=== PATIENT | female | born 1945 | race Caucasian/White ===

== ENCOUNTER → 2019-12-18 07:45 | Outpatient (CLI) | payer OTHER, SELFPAY ==
[2019-12-18 08:00] LABS: Bacteria Urine None Seen; RBC Urine None Seen (0-5/HPF); WBC Urine None Seen (0-5/HPF)
[2019-12-18 08:27] LABS: Add Manual Diff / Slide Review NO; Basophils Absolute Auto 100 /uL (0-100); Eosinophils Absolute Auto 200 /uL (0-450); Eosinophils Percent Auto 3.9 % (2-4); Hematocrit 38.4 % (36-46); Lymphocytes Absolute Auto 1100 /uL (1100-4500); Lymphocytes Percent Auto 20.6 % (25-40); Mean Corpuscular HGB Conc 33.8 % (30-36); Mean Corpuscular Hemoglobin 30.6 PG (26-34); Mean Corpuscular Volume 90.6 fL (80-100); Monocytes Absolute Auto 600 /uL (0-900); Monocytes Percent Auto 11.4 % (3-14); Neutrophils Absolute Auto 3300 /uL (1500-7000); Neutrophils Percent Auto 63.1 % (50-75); Platelet Count 323 X10^3/uL (150-400); Red Blood Cell Count 4.24 X10^6/uL (4.0-5.2); Red Cell Distribution Width 13.7 % (11.6-14.8); White Blood Cell Count 5.3 X10^3/uL (4.5-11.0)
[2019-12-18 08:39] LABS: BUN Creatinine Ratio 21.4 (6-22); Blood Urea Nitrogen 15 mg/dL (7-17); Calcium 9.7 mg/dL (8.4-10.2); Carbon Dioxide 27 mmol/L (22-32); Chloride 100 mmol/L (98-107); Estimated Glomerular Filt Rate > 60.0 mL/min (>60); Glucose 87 mg/dL (80-110); HEMOLYSIS < 15 (0-50); Potassium 4.1 mmol/L (3.4-5.1); Sodium 135 mmol/L (137-145)
[2019-12-18 09:47] LABS: Appearance Urine UA CLEAR; Bilirubin Urine UA NEGATIVE (NEGATIVE); Color Urine UA YELLOW; Glucose Urine UA NEGATIVE (Negative); Ketones Urine UA NEGATIVE (NEGATIVE); Leukocyte Esterase Urine UA NEGATIVE (NEGATIVE); Nitrite Urine UA NEGATIVE (Negative); Occult Blood Urine UA TRACE-LYSED (Negative); Protein Urine UA NEGATIVE (Negative); Specific Gravity Urine UA 1.015 (1.000-1.035); Urobilinogen Urine UA 0.2 E.U./dL (0.2)
[2019-12-18 09:52] LABS: pH Urine UA 5.5 (4.5-8.0)
[2019-12-18 10:05] LABS: Culture Indicated Urine Cult Not Indicated; Urine Comments Microscopic Normal
[2019-12-18 10:16] LABS: Transferrin 238 mg/dL (206-381)
== END ==
PROVIDERS: Visit Provider Orthopaedic Surgery
DX: Z01.818 Encounter for other preprocedural examination (principal); Z01.812 Encounter for preprocedural laboratory examination; R73.9 Hyperglycemia, unspecified; N39.0 Urinary tract infection, site not specified; D64.9 Anemia, unspecified; R79.9 Abnormal finding of blood chemistry, unspecified
CPT/HCPCS: 36415; 80048; 81001; 83036; 84466; 85025; 93005

== ENCOUNTER 2020-01-18 08:05 | Day surgery (SDC) | payer OTHER, SELFPAY ==
[2020-01-11 12:50] VITALS: BMI 21.9
[2020-01-18] VITALS (15 sets, daily range): BP systolic 110–168; BP diastolic 49–94; PULSE 54–93; RESP 13–19; TEMP 36.1–36.5; O2SAT 94–100; BMI 21.9
--- NOTE | 2020-01-18 06:50 | DI.RAD.S_ITS ---
PROCEDURE: XR KNEE LT 1TO2V INDICATIONS: post op TECHNIQUE: 2 view(s) of the knee acquired. COMPARISON: None. FINDINGS: Bones: Patient is status post knee joint arthroplasty. Hardware components are in expected positions. Visualized bony structures are intact. Soft tissues: Overlying postoperative changes are noted. IMPRESSION: Post left total knee arthroplasty changes with anatomic left knee alignment. Dictated by: Caleb Slater M.D. on 01/18/2020 at 14:22 Approved by: Caleb Slater M.D. on 01/18/2020 at 14:22
[2020-01-18] MEDS: LACTATED RINGERS 1,000 ML 42 ML IV ×2 (09:14→12:08)
[2020-01-18] MEDS: ACETAMINOPHEN 325 MG TABLET 975 MG PO (09:18)
[2020-01-18] MEDS: MELOXICAM 7.5 MG TABLET 15 MG PO (09:19)
[2020-01-18] MEDS: PREGABALIN 75 MG CAPSULE PO (09:19)
--- NOTE | 2020-01-18 09:40 | PM.PREOP ---
Pre-operative Note Interval Note History & Physical reviewed/Exam performed by Physician: Yes Changes to H&P: No
--- NOTE | 2020-01-18 09:49 | PM.OP.1 ---
Operative Date/Time/Diagnoses Date of procedure: 01/18/20 Time of procedure: 11:55 Pre-op diagnosis: Left knee osteoarthritis Post-op diagnosis: same Procedure & Clinicians Procedure: Left total knee replacement Same procedure as scheduled: Yes Indications: The patient has had progressively worsening left knee pain with radiographic changes consistent with arthritis. Non-operative management has failed and the patient has requested total knee replacement. The risks, benefits and alternatives to surgery were discussed with the patient prior to proceeding. Risks discussed included, but were not limited to, failure to relieve pain, stiffness, infection, nerve damage, deep venous thrombosis, pulmonary embolism, stroke, coma, heart attack, permanent paralysis and , as well as the potential need for eventual revision of the prosthetic. Surgeon: Ishaan Aldridge Jukebox Coin Collector: Lisbeth Andino Click Yes if Unassisted: No Anesthesia Type: Local Operative Notes Findings: Severe tricompartmental osteoarthritis with significant valgus deformity. Closure Type: primary Specimen(s): none sent Prosthetic devices, grafts, tissues, transplants, or devices: Implants used in this procedure were manufactured by the [employer] and [employer] and included the BCS II Journey total knee replacement with a size 4 left cobalt chromium femoral component, a size 3 left non porous tibial base plate with a 9 mm cross-linked polyethylene insert and a 35 mm oval Fransisca II patellar component. Applied: implant(s) Estimated Blood Loss (mL): 25 Blood products transfused: none Tourniquet time (min): 47 Procedure in detail: The patient was seen in the pre-operative area, where the left knee was identified as the operative site and this was marked with my initials. The patient received pre-operative antibiotics, and was taken to the operating room and placed on the operative table in the supine position. After satisfactory anesthesia, a fuller brush man out was performed. The left leg was encircled with a tourniquet about the proximal thigh, and the leg was prepared from the toes to the tourniquet with ChloroPrep in the usual fashion and draped through sterile drapes. The leg was elevated and exsanguinated with Eschmark bandage and the tourniquet inflated to 250 mmHg pressure. The knee was approached through an approximately 18 cm incision centered over the patella and carried into the knee through a medial parapatellar arthrotomy. The anterior osteophytes and soft tissues were removed. The rotational landmarks of [place]'s line and the transepicondylar axis were marked on the femur with electrocautery, and intramedullary guide holes for the femur and tibia were created. The distal femoral cut was made in 6 degrees of valgus using the intramedullary guide at the primary cut setting. The proximal tibial cut was then made using the intramedullary guide, taking 7 mm of bone off the less involved medial side. The extension gap was checked and the rotation of the femoral component confirmed with the gap balancing blocks. The anterior, posterior and chamfer cuts were then made. The posterior osteophytes and soft tissues were then removed. The posterior capsule was injected with part of a mixture of 50 ml 0.25% Marcaine mixed with 20 ml Exparel and 4 mg of morphine for post-operative pain control. The remainder of this mixture was injected into the capsule and subcutaneous tissues during cement curing. The tibia was prepared with the rotation set by an extra medullary guide. Trial tibial and femoral components were then placed and the intercondylar notch cut through the femoral trial. Range of motion was 0-135 degrees, with good stability throughout the range. The patella was then cut to accommodate the patellar prosthetic. There was no need for a lateral release. The trials were then removed, and the femoral hole plugged with a bone plug. The bone was prepared with pulsatile lavage, and dried with a sponge. Cement was applied and the final prosthetics placed. Excess cement was removed during and after cement curing. After confirming there was no extruded cement posteriorly, the final tibial insert was placed. The knee was copiously irrigated and the tourniquet deflated. Hemostasis was obtained. The capsule was closed with interrupted # 2 polyester sutures. The subcutaneous layer was closed with 3-0 Vicryl, and the skin with a running 3-0 V-Lock suture and SteriStrips. An Aquacel Ag dressing was applied and the patient was taken to recovery having tolerated the procedure well. Complications: none Post-operative Condition: stable Disposition: PACU Plan for aftercare: The patient will be maintained on a standard total knee replacement protocol with weight bearing as tolerated. The patient will receive aspirin and sequential compression devices for DVT prophylaxis. The patient will be discharged home when safe for the home environment.
[2020-01-18] MEDS: CEFAZOLIN 2 GM/100 ML FROZ.PIGGY IV (10:25)
--- NOTE | 2020-01-18 10:57 | SUR.OPER ---
Supine on padded OR bed. Pillow under head, arms secured on padded armboards <90 degree abduction. Safety belt across torso. Non-operative leg secured with tape over blanket over lower leg. Operative leg secured in DeMayo/Daryl positioner. Foam padded brace at thigh of operative leg.
[2020-01-18] MEDS: BUPIVACAINE 0.25% W/ EPI 30 ML VIAL 60 ML INJ (11:04)
[2020-01-18] MEDS: TRANEXAMIC ACID 1,000 MG VIAL 1000 MG INJ ×2 (11:04→11:27)
[2020-01-18] MEDS: MORPHINE 4 MG/ML INJ INJ (11:05)
[2020-01-18] MEDS: BUPIVACAINE LIPOSOME 266 MG/20 ML VIAL INJ (11:05)
[2020-01-18] MEDS: OXYCODONE/ACETAMINOPHEN 5/325 TABLET 1 TAB PO (12:43)
--- NOTE | 2020-01-18 13:15 | SUR.PHASEI ---
Patient transferred to the floor. Report given to Casper. VS stable. IV saline locked. Dressing CDI. Belongings bag with patient.
[2020-01-18] MEDS: LACTATED RINGERS 1,000 ML 125 ML IV ×2 (14:42→21:07)
[2020-01-18] MEDS: IBUPROFEN 400 MG TABLET PO ×3 (14:42→21:10)
--- NOTE | 2020-01-18 15:19 | PT.IIE ---
Current Diagnoses Unilateral primary osteoarthritis, left knee (01/18/20) Surgery Performed Operation Date: 01/18/20 10:15 Actual Procedures p Total Knee Arthroplasty(Left) - Ishaan Aldridge MD Surgical History (Last Updated 01/11/20 @ 13:12 by Nevaeh Bundy, RN) History of arthroscopy of both knees (Acute) History of facelift (Acute ~2012) Hx of abdominoplasty (Acute ~1985) Hx of appendectomy (Acute) Hx of bilateral cataract extraction (Acute) Hx of tonsillectomy (Acute) Medical History (Last Updated 01/11/20 @ 13:12 by Nevaeh Bundy RN) BCC (basal cell carcinoma), face (Acute) HLD (hyperlipidemia) (Acute) Hypothyroidism (Acute) Osteoarthritis (Acute) Physical Therapy Inpatient Evaluation/Re-Eval M1 PT/OT-IP Prior Functional Status Start: 01/18/20 13:13 Freq: NEEDED Status: Active Protocol: Document 01/18/20 15:03 AW (Rec: 01/18/20 15:19 AW [email or web address]) Medical Review Prior Functional Status Medical History Reviewed Yes Communication WNL Mobility and Gait Pt is active, walks daily without assistive device, and regularly uses the elliptical machine at the gym. Activities of Daily Living and IADL's Independent Prior Functional Level (Other details) Pt denies any falls in the past two years. Social History Household Members significant other Living Arrangements House Number of Floors (Floors) 3 or More Floors Number of Stairs To Enter/Railing? 2 HARI with R rail ascending. 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 Home Environment High Toilet,Walk in Shower, Built-In Shower Seat Home Equipment Front Wheel Walker,Straight Cane,Raised Toilet Seat Without Armrests Employment Status Retired Additional Social History Comment Pt lives with her domestic partner of 40 years, Tash, who is retired and has no limitation in her ability to assist. M2 PT-IP Current Condition Start: 01/18/20 13:13 Freq: NEEDED Status: Active Protocol: Document 01/18/20 15:03 AW (Rec: 01/18/20 15:19 AW [email or web address]) Physical Therapy Current Condition Current Condition Evaluation Date 01/18/20 Treatment Diagnosis L TKA, impaired mobility Onset Date 01/18/20 Weight Bearing Status Weight Bearing Status Weight Bear as Tolerated M3 PT-IP Subjective Start: 01/18/20 13:13 Freq: NEEDED Status: Active Protocol: Document 01/18/20 15:03 AW (Rec: 01/18/20 15:19 AW [email or web address]) Subjective Physical Therapy Visit Type Type Initial Evaluation Visit Start Time 13:58 Visit Stop Time 14:27 Total Visit Minutes 29 Notes Pt's partner, Tash, present throughout evaluation Number of HISTORIAN RESEARCH ASSISTANT Visits 0 Physical Therapy Visit Comments Patient Comments Pt willing to mobilize with PT Patient Goals Pt plans to return home with her partner's support at discharge. Therapy Pain Assessment Pain When Pain Assessed During Mobility Pain Present Pain Present Denied Pain M4 PT-IP Mobility and Gait Start: 01/18/20 13:13 Freq: NEEDED Status: Active Protocol: Document 01/18/20 15:03 AW (Rec: 01/18/20 15:19 AW [email or web address]) PT-Bed Mobility Assessment Supine to Sit Supine to Sit Minimal Assistance,1 Person Assistance,Head of Bed Elevated,Bedrails Scooting Scooting to Edge of Bed Contact Guard Assistance PT-Transfer Assessment Sit to and From Stand Sit to and from Stand Minimal Assistance,1 Person Assistance Equipment Transfer Assistive Device Gait Belt,Front Wheeled Walker Orthotic/Prosthetic Devices or Brace: No Transfers Transfer Destination Chair Transfer Technique Stand Step Pivot Transfer Ability Level of Assist Contact Guard Assistance Comments Mobility Comments Pt was sitting up in bed upon PT arrival. She was willing to work with PT but did report incomplete sensation in bilateral feet. BP in supine was 146/77 HR 61. She completed supine to sit with min A x 1 to support her operative leg. Pt stood using FWW min A x 1 and was incontinent of urine upon standing. She was able to walk with FWW CGA 2 feet to the chair and transferred CGA. Pt stood again to don briefs and was able to bear weight bilaterally while pulling up briefs with therapist CGA to assist with balance. Pt sat again and was positioned in the chair with fresh ice packs applied, call light and table within reach, and her partner in room providing encouragement. Gait Assessment Gait Gait Assistance Required: Contact Guard Assist Distance (Feet) 2 Able to Maintain Weight Bearing Status Yes During Gait Assistive Devices Assistive Device Gait Belt,Front Wheeled Walker Orthotic/Prosthetic Devices or Brace: No Gait Deviations General Gait Pattern Antalgic,Decreased Stride Length,Decreased Feet Clearance,Flexed Trunk,Step-to Gait Factors Limiting Gait Function Factors Limiting Gait Function Decreased Sensation,Decreased Strength,Limited Range of Motion,Poor Balance Comments Gait Comments See mobility comments Stair Climbing Assessment Comments Stair Climbing Comments Not assessed. PT-Balance Assessment Sitting Balance and Reactions Static Sitting Balance Ability Normal Dynamic Sitting Balance Ability Good Standing Balance and Reactions Static Standing Balance Ability Good Dynamic Standing Balance Ability Good Device Used FWW M5 PT-IP Objective Assessments Start: 01/18/20 13:13 Freq: NEEDED Status: Active Protocol: Document 01/18/20 15:03 AW (Rec: 01/18/20 15:19 AW [email or web address]) Orientation Orientation/Cognition Level of Alertness Alert Orientation Name,Day of Week,Place, Situation Language Function Ability No Deficits Noted Safety Awareness Understands Safety Issues Memory Description No Deficits Noted Gross Range of Motion Upper Extremity ROM Assessment Within Functional Limits Lower Extremity ROM Assessment Left Impaired Strength Upper Extremity Strength Assessment Within Functional Limits Lower Extremity Strength Assessment Left Impaired Comments Strength Comments RLE grossly 4+/5 Coordination Assessment Gross Coordination Gross Coordination WNL Sensation Assessment Sensation Gross Sensation Right LE Impaired,Left LE Impaired Light Touch Impaired M6 PT-IP Treatment Start: 01/18/20 13:13 Freq: NEEDED Status: Active Protocol: Document 01/18/20 15:03 AW (Rec: 01/18/20 15:19 AW [email or web address]) Physical Therapy Treatment Exercises Exercises Ankle Pumps,Quad Sets,Heel Slides,Supine Hip Abduction Education Education Provided Precautions,Weight Bearing Status,Post-Op Packet,Safety Other Treatments Other Treatment Performed Provided education on role of PT, plan of care, weightbearing status, and safe use of FWW. M7 PT-IP Assessment and Plan Start: 01/18/20 13:13 Freq: NEEDED Status: Active Protocol: Document 01/18/20 15:03 AW (Rec: 01/18/20 15:19 AW [email or web address]) PT Summary Assessment and Plan Potential Rehabilitation Potential Excellent Status of Condition at Evaluation Evolving Summary Impairments ROM,Strength,Sensation,Bed Mobility,Transfers,Gait Assessment Summary Monie is a 74 yo woman seen for PT evaluation on POD0 folllowing L TKA. At baseline, she was active and independent without use of assistive device. She lives with her partner, Tash, who is available and able to provide assist as needed. On evaluation, pt required min assist for bed mobility and sit to stand, CGA for transfers. PT anticipates she will meet the goals of this plan of care and be safe to discharge home with her partner's assist and outpatient PT once medically cleared. Goals Bed Mobility Goal Standby Assistance Transfer Goal Standby Assistance,Front Wheeled Walker Gait Goal Standby Assistance,Front Wheel Walker Gait Distance 200 Other Goals - up/down 2 stairs with R rail ascending SBA Days to Meet Goals 2 Frequency of Treatment Frequency Of Treatment Twice a Day Treatment Plan Physical Therapy Treatment Plan Bed Mobility Training,Transfer Training,Gait Training, Therapeutic Exercise,Balance Retraining,Post Op Education, Discharge Planning,Hot or Cold Pack,Neuromuscular Re-ed, Coordination Retraining,Manual Therapy Other Recommendations and Next Treatment assess gait, assess safety on Focus stairs Recommendations To Nursing Amount of Assist Needed 1 Person Assist Discharge Recommendations PT Discharge Recommendations Home with Assistance, Outpatient PT Transportation Needs at Discharge Private Vehicle
--- NOTE | 2020-01-18 15:25 | PC.NURSE ---
VSS. Oriented to room and call light. Pain well controlled at this time. Christopher and aquacel intact. Per P.T. patient had urinary incontinence when she got up to chair. Evening shift RN aware and will continue to monitor for urinary function post surgery. IV fluids as ordered. Call light within reach.
--- NOTE | 2020-01-18 17:57 | PC.NURSE ---
Addendum entered by Elizabeth De La Torre R.N. 01/18/20 21:16: Pt sitting in chair all evening. Denies discomfort. IVF infusing as per orders. Stable post op course. Call light w/in reach, pt calls appropriately for needs. Continue w/plan of care. Original Note: Pt sitting in chair, denies discomfort at this time. Christopher/aquacell dsg to left knee CDI. IVF LR @ 125cc/hr infusing into left hand via pump w/o incidence. Stable post op course. Call light w/in reach, chair alarm on for pt safety.
[2020-01-18] MEDS: ASPIRIN EC 81 MG TABLET PO (19:43)
[2020-01-18] MEDS: DOCUSATE 100 MG CAPSULE PO (19:43)
[2020-01-18] MEDS: ACETAMINOPHEN 325 MG TABLET 650 MG PO (19:43)
[2020-01-19] MEDS: IBUPROFEN 400 MG TABLET PO ×3 (01:19→09:05)
[2020-01-19] MEDS: LEVOTHYROXINE 25 MCG TABLET PO (05:10)
[2020-01-19 05:22] VITALS: BP 140/74; PULSE 61; RESP 16; TEMP 36.4; O2SAT 99
[2020-01-19 07:02] LABS: Hematocrit 31.4 % (36-46); Hemoglobin 10.7 g/dL (12.0-16.0)
--- NOTE | 2020-01-19 07:31 | PM.DS.1 ---
History of Present Illness History of Present Illness Date Patient Seen: 01/19/20 Time Patient Seen: 07:31 Chief complaint: Left Total Knee Arthroplasty *OPB* Narrative: The history and physical are contained in the chart in a previously completed note. Please refer to that note for this information. Discharge Providers Provider Discharge Date: 01/19/20 Consults: 01/18/20 13:08 Consult to Discharge Planning Routine Comment: Consult to Physical Therapy Evaluate & Treat Comment: Physician Instructions: postop TKA protocol Discharge provider: Ishaan Aldridge MD Summary Hospital Course Discharge Diagnosis: 1. Left knee osteoarthritis 2. Mild post hemorrhagic anemia Hospital Course: The patient was admitted to the hospital and taken directly to the operating room on January 18, 2020. She underwent a left total knee replacement without complications. On postoperative day 1 she was comfortable and appeared ready for discharge. Status at Discharge Cognitive/behavioral status at discharge: oriented Functional status at discharge: uses cane/walker Overall status at discharge: patient is progressing back to baseline Time Spent with Patient Time spent: Less than 30 minutes Exam Vital Signs (past 8 hours): - 01/19/20 05:22 Temperature 97.6 F Pulse Rate 61 Respiratory Rate 16 Blood Pressure 140/74 Pulse Oximetry 99 Oxygen Delivery Method Room Air Oxygen Flow Rate 0 Narrative Exam Narrative: Left knee wound is dressed with no drainage on the bandage. Calf is soft. Light touch and motion are intact in the left lower extremity. Objective Labs Result Diagrams: 01/19/20 06:35 Labs: Laboratory Results - last 24 hr 01/19/20 06:35 Hgb 10.7 L Hct 31.4 L Discharge Plan Discharge Plan Patient Disposition: Home Discharge Med Rec/Prescriptions Prescriptions: New acetaminophen 325 mg Tablet 650 mg PO TID 30 Days Qty: 180 RF: 0 aspirin 81 mg Tablet,Delayed Release (Dr/Ec) 81 mg PO BID 42 Days Qty: 84 RF: 0 ibuprofen 400 mg Tablet 400 mg PO Q4HR 30 Days RF: 0 oxycodone 5 mg Tablet 5 mg PO Q4H PRN (Reason: Pain, Moderate (4-6)) Qty: 40 RF: 0 Continued levothyroxine 25 mcg Capsule 25 mcg PO DAILY RF: 0 Discontinued acetaminophen [Tylenol Extra Strength] 500 mg Tablet 500 mg PO Q6H PRN (Reason: Pain) RF: 0 ibuprofen 200 mg Tablet 400 mg PO Q6H PRN (Reason: Pain) RF: 0 Follow up/Referrals: Ishaan Aldridge MD [Physician] - 2 Weeks Discharge Orders: Discharge (Order); Ordered 01/19/20 Ordered By: Ishaan Aldridge Provider Discharge Instructions Diet: Diet as Tolerated and Regular Activity: You may bear weight as tolerated on your left leg. Cold/Heat Therapy: Apply ice for 15 minutes of every hour as needed for pain control to the left knee. Skin/Wound/Dressing Care Report to your healthcare provider any signs of infection, such as:: chills, fever, night sweats, increased pain, unusual drainage and unusual redness Dressing: You may remove the Christopher wrap 3 days after surgery and shower with the deeper dressing in place. Leave the deeper dressing on until your follow-up. If the central strip of the deeper dressing becomes saturated with either water or blood, please call the office to have it evaluated. Visit Report/Discharge Packet Instructions: DI for Knee Replacement Stand Alone Forms: Surgery Discharge Discharge Data Attending Provider: Ishaan Aldridge Quality VTE Deep Vein Thrombosis/Pulmonary Embolism Present on Admission: No
[2020-01-19 09:00] VITALS: BP 144/75; PULSE 70; RESP 16; TEMP 36.6; O2SAT 98
[2020-01-19] MEDS: ACETAMINOPHEN 325 MG TABLET 650 MG PO (09:04)
[2020-01-19] MEDS: DOCUSATE 100 MG CAPSULE PO (09:05)
[2020-01-19] MEDS: ASPIRIN EC 81 MG TABLET PO (09:05)
--- NOTE | 2020-01-19 10:30 | PT.IPTN ---
Current Diagnoses Unilateral primary osteoarthritis, left knee (01/18/20) Surgery Performed Operation Date: 01/18/20 10:15 Actual Procedures p Total Knee Arthroplasty(Left) - Ishaan Aldridge MD Physical Therapy Treatment Note M2 PT-IP Current Condition Start: 01/18/20 13:13 Freq: NEEDED Status: Discharge Protocol: Document 01/18/20 15:03 AW (Rec: 01/18/20 15:19 AW [id number]) Physical Therapy Current Condition Current Condition Evaluation Date 01/18/20 Treatment Diagnosis L TKA, impaired mobility Onset Date 01/18/20 Weight Bearing Status Weight Bearing Status Weight Bear as Tolerated M3 PT-IP Subjective Start: 01/18/20 13:13 Freq: NEEDED Status: Discharge Protocol: Document 01/19/20 10:20 AW (Rec: 01/19/20 11:15 AW [id number]) Subjective Physical Therapy Visit Type Type Treatment Note Visit Start Time 10:05 Visit Stop Time 10:20 Total Visit Minutes 15 Notes Pt's partner, Tash, present throughout treatment, participating in caregiver training Number of HANDS HANGER Visits 0 Physical Therapy Visit Comments Patient Comments Pt willing to mobilize with PT Therapy Pain Assessment Pain When Pain Assessed During Mobility Pain Present Pain Present Pain Reported Location LT thigh Intensity 2 Scale Used Numeric (1 - 10) Pain Management Techniques Timing of Activity with Medications M4 PT-IP Mobility and Gait Start: 01/18/20 13:13 Freq: NEEDED Status: Discharge Protocol: Document 01/19/20 10:20 AW (Rec: 01/19/20 11:15 AW [id number]) PT-Bed Mobility Assessment Supine to Sit Supine to Sit Standby Assistance,1 Person Assistance PT-Transfer Assessment Sit to and From Stand Sit to and from Stand Standby Assistance,1 Person Assistance,Use of Upper Extremities Equipment Transfer Assistive Device Gait Belt,Front Wheeled Walker Orthotic/Prosthetic Devices or Brace: No Transfers Transfer Destination Chair Transfer Technique pt ambulated with fww Transfer Ability Level of Assist Standby Assistance Comments Mobility Comments Pt sitting up in bed upon PT arrival, dressed and preparing for discharge. She completed supine to sit and sit to stand SBA. She participated in gait training and returned to the room, transferring to the chair SBA with FWW. Gait Assessment Gait Gait Assistance Required: Standby Assistance Distance (Feet) 220 Able to Maintain Weight Bearing Status Yes During Gait Assistive Devices Assistive Device Gait Belt,Front Wheeled Walker Orthotic/Prosthetic Devices or Brace: No Gait Deviations General Gait Pattern Antalgic,Decreased Stride Length,Decreased Feet Clearance,Step-to Gait Factors Limiting Gait Function Factors Limiting Gait Function Decreased Strength,Limited Range of Motion Comments Gait Comments Pt ambulated in the halls with FWW SBA and minimal weight through the walker. She was able to correct her step-to pattern after cueing for equalizing her step lengths and for heelstrike at initial contact. She was safe with her FWW which was adjusted as low as possible but remains about an inch taller than optimal. Since pt is not using it for excessive weightbearing, it was deemed safe and appropriate. She was advised to continue using the walker at least until evaluated by outpatient PT. Stair Climbing Assessment Evaluation Level of Assist On Stairs Standby Assistance Devices Stair Climbing Assistive Devices Right Railing Technique/Endurance Stair Climbing Direction Ascend and Descend Stair Climbing Technique Step to Step Number of Steps Climbed 3 Stair Climbing Set # Repetitions (reps) 2 Comments Stair Climbing Comments After brief education and demonstration, pt was able to sequence stair navigation using right rail ascending SBA . PT-Balance Assessment Standing Balance and Reactions Static Standing Balance Ability Good Dynamic Standing Balance Ability Good Device Used FWW M5 PT-IP Objective Assessments Start: 01/18/20 13:13 Freq: NEEDED Status: Discharge Protocol: Document 01/18/20 15:03 AW (Rec: 01/18/20 15:19 AW [id number]) Orientation Orientation/Cognition Level of Alertness Alert Orientation Name,Day of Week,Place, Situation Language Function Ability No Deficits Noted Safety Awareness Understands Safety Issues Memory Description No Deficits Noted Gross Range of Motion Upper Extremity ROM Assessment Within Functional Limits Lower Extremity ROM Assessment Left Impaired Strength Upper Extremity Strength Assessment Within Functional Limits Lower Extremity Strength Assessment Left Impaired Comments Strength Comments RLE grossly 4+/5 Coordination Assessment Gross Coordination Gross Coordination WNL Sensation Assessment Sensation Gross Sensation Right LE Impaired,Left LE Impaired Light Touch Impaired M6 PT-IP Treatment Start: 01/18/20 13:13 Freq: NEEDED Status: Discharge Protocol: Document 01/19/20 10:20 AW (Rec: 01/19/20 11:15 AW [id number]) Physical Therapy Treatment Exercises Exercises Ankle Pumps,Quad Sets,Heel Slides,Short Arc Quads,Passive Knee Extension Hang Education Education Provided Weight Bearing Status,Safety Other Treatments Other Treatment Performed Pt advised to keep her knee in extension as much as tolerable when lying or reclining. Also educated pt to continue icing as much as 20 minutes hourly at home in order to decrease swelling and reduce pain. M7 PT-IP Assessment and Plan Start: 01/18/20 13:13 Freq: NEEDED Status: Discharge Protocol: Document 01/19/20 10:20 AW (Rec: 01/19/20 11:15 AW [id number]) PT Summary Assessment and Plan Summary Progress Towards Goals Safe For Discharge,Goals Met Assessment Summary Pt has met all goals. Her partner is able to provide appropriate cueing and level of assist. Monie is safe to discharge to her home environment with her partner's assist and outpatient PT. Frequency of Treatment Frequency Of Treatment Discharge Discharge Recommendations PT Discharge Recommendations Home with Assistance, Outpatient PT
--- NOTE | 2020-01-19 10:54 | CM.DANOTE ---
DCP Assessment: (EMR Reviewed): Patient is a pleasant 74 year old woman who was lying in bed with life partner, Merlene, at bedside when CM went to room. Introduced self and role. Patient admitted for a Left Total Knee Arthroplasty performed by Dr. Aldridge. Patient is on the steven path. Patient reports lives at home with life partner Merlene who is retired and can be a timekeeping supervisor drug discovery informatics specialist or her after surgery. Patient states there are 2 steps into the home with a hand rail. Patient reports at home has a FWW, elevated toilet seat, walk-in shower, and built in shower seat. Patient reports being independent with ADLs and driving prior to surgery. Patient states plan is to return home with partner Merlene as drug discovery informatics specialist, which is congruent with initial discharge plan documented by Dr. Aldridge. I: [place] [facility] Advantage P: Discharge home with partner Merlene. Patient reports feeling confident with this plan, having all DME already in place, and having her follow-up PT appointments scheduled. Patient denies complications with pain. CM will continue to be available for discharge needs and any discharge plan changes. SN Carisa Mccall RN Discharge Planning/Care Management CM Discharge Assessment Start: 01/19/20 10:52 Freq: Status: Discharge Protocol: Document 01/19/20 10:52 HS (Rec: 01/19/20 10:54 [id number]) Discharge Planning Assessment Assigned Regional Driver Carisa Beavers RN/SN Stefany Advance Directives? Yes Advance Directives on File No History Provided By Patient,Significant Other, Medical Record Prior Living Arrangements House Household Members significant other Type of transporation used prior to Drives own vehicle admit Independent with ADL's Yes Is patient alert and oriented? Yes Caregiver for Another No DME Already Rented / Owned Elevated Toilet Seat,FWW / Walker Patient/Family Preference OP PT Therapy Barriers to Discharge No Discharge Plan Home Community Services Physical Therapy Referrals Initiated None needed Whiteboard Updated in Patient Room with Yes name and ext. # of Regional Driver Review Status In Process Next Review Type Continued Stay Review Pre-Anesthesia Assessment Start: 01/11/20 12:50 Freq: Status: Discharge Protocol: Document 01/11/20 12:50 CAB (Rec: 01/11/20 13:44 CAB [id number]) Pre-Anesthesia Assessment PAC Comment Surgeon H&P not available at time of assess. Pt reports high anxiety prior to medical/ surgical procedures. Patient Information Reviewed Via Phone Assessment Assessment Completed With Patient Diagnostic Results BMP/CMP,CBC,EKG Comment Labs/EKG @ 12/18/19 Primary Care Provider Stevenson Molina Seen Specialist in Last 12 Months Yes Specialist Seen Orthopedist Primary Language Somali Finished Garment Inspector Required No Height 154.94 cm Weight 52.617 kg Body Mass Index (BMI) 21.9 Hearing Ability Normal Visual Assist Magnifying Glass Dentition Type Teeth, Natural Present Barriers to Learning None Other Aids No Hx Anesthesia Reactions Yes: Vomited while watching knee arthroscopy Hx Family Anesthesia Reaction No Hx Malignant Hyperthermia No Hx Blood Transfusions No Anesthesia Review Requested No: Pt would like a spinal alcohol intake former Alcohol Intake Frequency Other: Quit 38 year ago Smoking Status Former smoker how long ago did patient quit smoking Quit 38 years ago Substance Use Type marijuana Comment Advised not to smoke marijuana 24 hours prior Pain Present Pain Reported Musculoskeletal Symptoms Abnormal Gait,Difficulty Walking,Joint Pain History of Falling (Recent or History of No ) Patient is completely paralyzed or No completely immobile Prosthesis or Orthotic Device Cane,Front Wheel Walker Mental Status Oriented to own ability Is patient on oxygen? No Does patient have ABERNATHY/SOB No Hx Sleep Apnea No Currently Taking a Beta Geovanni No Can You Climb a Flight of Stairs Without Yes SOB Hx Chest Pain No Hx SOB No Hx Syncope or Dizziness No Anti-Coagulant Therapy No Has a Fishing Vessel Deckhand No Cardiac Testing No Hx Pacemaker/ICD No Pacemaker Rep Required? No Cardiac Clearance Received Not Applicable Comment Active, goes to gym 4x/week Diet Type At Home Regular dysphagia No Bladder Pattern Urgency Urinary Catheter Present No Hx Urinary Self Catheterization No Diabetes No Patient No Lactating No Hx Drug Resistant Organism No Presence of External or Internal Medical Yes: Bilat eye lens Devices Have you traveled outside the [facility] in the last 30 days? Marital Status Single-w/domestic partner Lives With significant other Prior Living Arrangements House Number of Floors (Floors) 3 or More Floors Support System Friend(s),Significant Other Does the Patient Have Assistance After Yes Surgery Patient Discharge Plan Description Return Home Comment Pt advised 24 hour length of stay per surgeon Feels Safe in Current Environment Yes Been Physically Hurt or Threatened By a No Person in Current Environment Do you have thoughts of harming yourself None or others? Are you currently considering suicide? No Do you have a plan to hurt yourself or No Plan others? Do You Have Any Spiritual Beliefs That No May Affect Your HC Choices? Do You Have Any Cultural Practices That No May Affect Your HC Choices? Who Can We Speak to About Patient's Care Family, friends Identifying Code for Release of Patient Declines to issue Information Health Care Proxy/Next of Kin Tash (Domestic partner) Health Care Proxy Phone Number Pt to update dos Emergency Contact Name Tash (Domestic partner) Emergency Contact Phone Number Pt to update dos Advance Directives? Yes Advance Directives on File No Requested Patient Bring Advanced Yes Directives DOS Power of Freight Inspector Yes: Will bring dos Power of Freight Inspector Name Tash (Domestic partner) Power of Freight Inspector Phone Number Pt to update dos PAC Instructions Do not shave/clip surgical site,Durable medical equipment ,Medications to take/avoid, Nasal antibiotic,No ETOH/ petroleum product on skin DOS, Post-op transportation,Pre- surgical wash,Sturdy shoes/ comfortable clothes,Do not bring valuables and remove jewelry
--- NOTE | 2020-01-19 10:57 | PC.NURSE ---
@ 1050 this RN instructed pt regarding s/sx infection and stroke, f/u appt, RX medications and all d/c instructions; JENARO wrap intact; pt transferred to wheelchair with SBA; escorted to private vehicle with belongings in hand
== END 2020-01-19 10:57 | disposition home or self-care (01) ==
LOC: OR 08:12 → AC 08:12
PROVIDERS: Referring Provider Orthopaedic Surgery; Visit Provider Orthopaedic Surgery
PROC: 0SRD0JZ Replacement of Left Knee Joint with Synthetic Substitute, Open Approach (ICD-10-PCS; CPT 27447; principal; 2020-01-18 10:15)
DX: M17.12 Unilateral primary osteoarthritis, left knee (principal); M21.062 Valgus deformity, not elsewhere classified, left knee
CPT/HCPCS: 27447; 36415; 73560; 85014; 85018; 94762; 97110; 97116; 97161; C1776; C9290; J0690; J1100; J2250; J2270; J2274; J2405; J2704; J3010

== ENCOUNTER → 2020-09-23 13:13 | Outpatient (CLI) | payer OTHER, SELFPAY ==
[2020-01-18 13:22] VITALS: BMI 21.9
[2020-09-26 07:42] LABS: COVID19 Sendout Not Detected (Not Detect)
== END ==
PROVIDERS: Visit Provider Physician Assistant
DX: Z11.59 Encounter for screening for other viral diseases (principal)
CPT/HCPCS: 87635

== ENCOUNTER 2020-09-26 09:05 | Day surgery (SDC) | payer OTHER, SELFPAY ==
[2020-01-18 13:22] VITALS: BMI 21.9
[2020-09-20 09:23] VITALS: BMI 22.3
[2020-09-26] VITALS (11 sets, daily range): BP systolic 105–162; BP diastolic 50–84; PULSE 55–84; RESP 14–17; TEMP 35.9–36.7; O2SAT 94–100; BMI 22.3
--- NOTE | 2020-09-26 07:18 | DI.RAD.S_ITS ---
PROCEDURE: XR KNEE RT 1TO2V INDICATIONS: post operative films TECHNIQUE: 2 view(s) of the knee acquired. COMPARISON: [facility] [place], [place], XR KNEE ARTHRITIC SERIES LT, 04/19/2020, 9:20. [facility], CANDY, XR KNEE LT 1TO2V, 01/18/2020, 12:19. FINDINGS: Bones: Patient is status post knee joint arthroplasty. Hardware components are in expected positions. Visualized bony structures are intact. Soft tissues: Overlying postoperative changes are noted. IMPRESSION: Satisfactory appearance of the right total knee arthroplasty. Dictated by: Galen Worthington M.D. on 09/26/2020 at 15:25 Approved by: Galen Worthington M.D. on 09/26/2020 at 15:25
[2020-09-26] MEDS: PREGABALIN 75 MG CAPSULE PO (09:29)
[2020-09-26] MEDS: MELOXICAM 7.5 MG TABLET 15 MG PO (09:30)
[2020-09-26] MEDS: ACETAMINOPHEN 325 MG TABLET 975 MG PO (09:30)
--- NOTE | 2020-09-26 09:32 | PM.PREOP ---
Pre-operative Note COVID-19 COVID-19 status: Negative Result date/Date tested (Pos, Neg/Pending): 09/23/20 Interval Note History & Physical reviewed/Exam performed by Physician: Yes Changes to H&P: No
[2020-09-26] MEDS: LACTATED RINGERS 1,000 ML 42 ML IV ×2 (09:44→11:08)
--- NOTE | 2020-09-26 10:03 | PM.OP.1 ---
Operative Date/Time/Diagnoses Date of procedure: 09/26/20 Pre-op diagnosis: Right knee osteoarthritis Post-op diagnosis: other (In addition, there was an iatrogenic avulsion of the patellar tendon from the tibia.) Procedure & Clinicians Procedure: 1. Right total knee replacement 2. Repair of patellar tendon avulsion Same procedure as scheduled: No (The 2nd procedure was additional.) Indications: The patient has had progressively worsening right knee pain with radiographic changes consistent with arthritis. Non-operative management has failed and the patient has requested total knee replacement. The risks, benefits and alternatives to surgery were discussed with the patient prior to proceeding. Risks discussed included, but were not limited to, failure to relieve pain, stiffness, infection, nerve damage, deep venous thrombosis, pulmonary embolism, stroke, coma, heart attack, permanent paralysis and , as well as the potential need for eventual revision of the prosthetic. Surgeon: Ishaan Aldridge School Age Program Teacher: Carlin Wilson Click Yes if Unassisted: No Anesthesia Type: Local Operative Notes Findings: Severe lateral and moderately severe medial and patellofemoral osteoarthritis. In addition as the knee was flexed to expose the knee initially the patellar tendon did avulse. Closure Type: primary Specimen(s): none sent Prosthetic devices, grafts, tissues, transplants, or devices: Implants used in this procedure were manufactured by the [employer] and [employer] and included the BCS II Journey total knee replacement with a size 4 right cobalt chromium femoral component, a size 3 right non porous tibial base plate, a 10 mm cross-linked polyethylene insert and a 35 mm oval Fransisca II patella. In addition there were 2 [employer]k Healix Advance BR triple threaded suture anchors used to repair the patella tendon avulsion. Applied: implant(s) Estimated Blood Loss (mL): 50 Blood products transfused: none Tourniquet time (min): 50 Procedure in detail: The patient was seen in the pre-operative area, where the patient identified the right knee as the operative site and this was marked with my initials. The patient received pre-operative antibiotics, and was taken to the operating room and placed on the operative table in the supine position. After satisfactory anesthesia, a time stamp assembler out was performed. The right leg was encircled with a tourniquet about the proximal thigh, and the leg was prepared from the toes to the tourniquet with ChloroPrep in the usual fashion and draped through sterile drapes. The leg was elevated and exsanguinated with Eschmark bandage and the tourniquet inflated to 250 mmHg pressure. The knee was approached through an approximately 18 cm incision centered over the patella and carried into the knee through a medial parapatellar arthrotomy. As we flexed the knee for exposure it became evident that the patellar tendon had begun to avulse and despite significant care to prevent full avulsion it fully avulsed even without patellar eversion. The anterior osteophytes and soft tissues were removed. The rotational landmarks of Luther's line and the transepicondylar axis were marked on the femur with electrocautery, and intramedullary guide holes for the femur and tibia were created. The distal femoral cut was made in 6 degrees of valgus using the intramedullary guide at the primary cut setting. The proximal tibial cut was then made using the intramedullary guide, taking 7 mm of bone off the less involved medial side. The extension gap was checked and the rotation of the femoral component confirmed with the gap balancing system. The anterior, posterior and chamfer cuts were then made. The posterior osteophytes and soft tissues were then removed. The posterior capsule was injected with part of a mixture of 50 ml 0.25% Marcaine mixed with 20 ml Exparel and 4 mg of morphine for post-operative pain control. The remainder of this mixture was injected into the capsule and subcutaneous tissues during cement curing. The tibia was prepared with the rotation set by an extra medullary guide. Trial tibial and femoral components were then placed and the intercondylar notch cut through the femoral trial. Range of motion was 0-135 degrees, with good stability throughout the range. The patella was then cut to accommodate the patellar prosthetic. There was no need for a lateral release. The trials were then removed, and the femoral hole plugged with a bone plug. The bone was prepared with pulsatile lavage, and dried with a sponge. Cement was applied and the final prosthetics placed. Excess cement was removed during and after cement curing. After confirming there was no extruded cement posteriorly, the final tibial insert was placed. The knee was copiously irrigated and the tourniquet deflated. Hemostasis was obtained. At this 0.2 anchors were placed in the footprint of the patellar tendon on the tibia. These were placed using the awl and the tap. Care was taken to avoid the stem of the prosthetic. The sutures from these anchors were then placed through the patellar tendon in a mattress fashion with 1 of the distal sutures being placed cross gaming across another suture to act as a grasping suture. The knee was placed through range of motion and it did not appear to show significant strain on this repair. The capsule was closed with interrupted # 2 polyester suture. The subcutaneous layer was closed with 3-0 Vicryl, and the skin with a running 3-0 V-Lock suture and Dermabond. An Aquacel Ag dressing was applied and the patient was taken to recovery having tolerated the procedure well. Complications: other (As noted there was an iatrogenic patellar tendon avulsion.) Post-operative Condition: stable Disposition: PACU Plan for aftercare: The patient will be maintained on a standard total knee replacement protocol with weight bearing as tolerated, but will be required to wear a knee immobilizer for 2 weeks. She will then be given a hinged knee brace and allowed 0-30 degrees range of motion for 2 weeks followed by 0-60 for 2 weeks followed by 0-90 for 2 weeks and then discontinuation of the brace.. The patient will receive aspirin and sequential compression devices for DVT prophylaxis. The patient will be discharged home when safe for the home environment.
[2020-09-26] MEDS: CEFAZOLIN 2 GM/100 ML FROZ.PIGGY IV (10:15)
[2020-09-26] MEDS: BUPIVACAINE LIPOSOME 266 MG/20 ML VIAL INJ (10:56)
[2020-09-26] MEDS: MORPHINE 4 MG/ML INJ INJ (10:57)
[2020-09-26] MEDS: BUPIVACAINE 0.25% W/ EPI (PF) 10 ML VIAL 20 ML INJ (10:58)
[2020-09-26] MEDS: TRANEXAMIC ACID 1,000 MG VIAL 1000 MG INJ ×2 (10:59→11:16)
[2020-09-26] MEDS: LACTATED RINGERS 1,000 ML 100 ML IV ×2 (13:00→20:57)
[2020-09-26] MEDS: ACETAMINOPHEN 325 MG TABLET 650 MG PO ×2 (14:37→20:54)
[2020-09-26] MEDS: IBUPROFEN 400 MG TABLET PO ×2 (14:37→20:56)
--- NOTE | 2020-09-26 16:02 | PC.NURSE ---
Addendum entered by Tiarra Hunter R.N. 09/26/20 23:47: Patient has voided twice since last note. Ambulating to BR with SBA, has good upper body strength & doing well with total knee precautions, wearing brace at all times. Denies pain, medicated with scheduled tylenol & ibuprofen. Original Note: Evening note: Monie ambulated in hallway with PT, wearing hard brace on RLE. Still denies any pain to her RLE. Drsg intact underneath brace. Pedal pulse present. Now sitting up in recliner. Denies nausea, tolerating PO's. VS are stable, pt awake & remains Ox3 & situation. Instructed to call nurse for any needs/concerns, fall precautions in place.
--- NOTE | 2020-09-26 16:49 | PT.IIE ---
Current Diagnoses Unilateral primary osteoarthritis, right knee (09/26/20) Surgery Performed Operation Date: 09/26/20 10:15 Actual Procedures p Total Knee Arthroplasty; Repair of avulsion of patellar tendon(Right) - Ishaan Aldridge MD Surgical History (Last Updated 09/20/20 @ 09:45 by Nevaeh Bundy RN) History of arthroplasty of left knee (Acute 01/18/20) History of arthroscopy of both knees (Acute) History of facelift (Acute ~2012) Hx of abdominoplasty (Acute ~1985) Hx of appendectomy (Acute) Hx of bilateral cataract extraction (Acute) Hx of tonsillectomy (Acute) Medical History (Last Updated 01/11/20 @ 13:12 by Nevaeh Bundy RN) BCC (basal cell carcinoma), face (Acute) HLD (hyperlipidemia) (Acute) Hypothyroidism (Acute) Osteoarthritis (Acute) Physical Therapy Inpatient Evaluation/Re-Eval M1 PT/OT-IP Prior Functional Status Start: 09/26/20 14:48 Freq: NEEDED Status: Active Protocol: Document 09/26/20 16:28 AW (Rec: 09/26/20 16:49 AW [id number]) Medical Review Prior Functional Status Medical History Reviewed Yes Communication WNL. Pt is an effective verbal communicator. Mobility and Gait Pt had L TKA in January 2020. She completed rehab and has been walking up to 5 miles per day. She also uses a stationary bike for exercise. Activities of Daily Living and IADL's Independent Social History Household Members significant other Living Arrangements House Number of Floors (Floors) 3 or More Floors Number of Stairs To Enter/Railing? 2 HARI with right rail ascending. Pt has planned to stay on the data entry assistant until she is confident with the stairs. 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 M2 PT-IP Current Condition Start: 09/26/20 14:48 Freq: NEEDED Status: Active Protocol: Document 09/26/20 16:28 AW (Rec: 09/26/20 16:49 AW [id number]) Physical Therapy Current Condition Current Condition Evaluation Date 09/26/20 Treatment Diagnosis R TKA, difficulty in walking Onset Date 09/26/20 Precautions Brace Per op note: The patient will be maintained on a standard total knee replacement protocol with weight bearing as tolerated, but will be required to wear a knee immobilizer for 2 weeks. She will then be given a hinged knee brace and allowed 0-30 degrees range of motion for 2 weeks followed by 0-60 for 2 weeks followed by 0-90 for 2 weeks and then discontinuation of the brace. Weight Bearing Status Weight Bearing Status Weight Bear as Tolerated M3 PT-IP Subjective Start: 09/26/20 14:48 Freq: NEEDED Status: Active Protocol: Document 09/26/20 16:28 AW (Rec: 09/26/20 16:49 AW [id number]) Subjective Physical Therapy Visit Type Type Initial Evaluation Visit Start Time 15:20 Visit Stop Time 15:40 Total Visit Minutes 20 Notes Pt to wear knee immobilizer at all times due to iatrogenic avulsion of the distal patellar tendon. Physical Therapy Visit Comments Patient Comments Pt is willing to participate with PT Patient Goals Pt plans to return home at discharge and get back to regular activity as soon as possible. Therapy Pain Assessment Pain When Pain Assessed During Mobility Pain Present Pain Present Pain Reported Location LT thigh Scale Used not quantified Pain Management Techniques Elevation,Re-positioning, Timing of Activity with Medications M4 PT-IP Mobility and Gait Start: 09/26/20 14:48 Freq: NEEDED Status: Active Protocol: Document 09/26/20 16:28 AW (Rec: 09/26/20 16:49 AW [id number]) PT-Bed Mobility Assessment Supine to Sit Supine to Sit Standby Assistance Scooting Scooting to Edge of Bed Standby Assistance PT-Transfer Assessment Sit to and From Stand Sit to and from Stand Contact Guard Assistance,1 Person Assistance,Use of Upper Extremities Equipment Transfer Assistive Device Gait Belt,Front Wheeled Walker Orthotic/Prosthetic Devices or Brace: Yes Transfers Transfer Destination Chair Transfer Technique pt ambulated with FWW Transfer Ability Level of Assist Standby Assistance Comments Mobility Comments Pt completed all bed mobility SBA. CGA was provided for sit to stand due to pt's unfamiliarity with knee immobilizer. Pt was able to bear weight on both legs in standing and proceeded to ambulate ~200 feet with FWW SBA. Gait Assessment Gait Gait Assistance Required: Standby Assistance Distance (Feet) 200 Able to Maintain Weight Bearing Status Yes During Gait Assistive Devices Assistive Device Gait Belt,Front Wheeled Walker Orthotic/Prosthetic Devices or Brace: Yes Gait Deviations General Gait Pattern Antalgic,Decreased Stride Length,Decreased Feet Clearance,Step-to Gait Comments Gait Comments Pt initiated gait by picking up FWW with each stride. In response to cues, pt began to push the walker along with minimal UE weightbearing. Pt had difficulty with heelstrike on the RLE due to knee immobilizer but was able to improve with cues. Stair Climbing Assessment Comments Stair Climbing Comments Not assessed. PT-Balance Assessment Sitting Balance and Reactions Static Sitting Balance Ability Normal Dynamic Sitting Balance Ability Normal Standing Balance and Reactions Static Standing Balance Ability Good Dynamic Standing Balance Ability Good Device Used FWW M5 PT-IP Objective Assessments Start: 09/26/20 14:48 Freq: NEEDED Status: Active Protocol: Document 09/26/20 16:28 AW (Rec: 09/26/20 16:49 AW [id number]) Orientation Orientation/Cognition Level of Alertness Alert Orientation Name,Day of Week,Place, Situation Language Function Ability No Deficits Noted Safety Awareness Understands Safety Issues Memory Description No Deficits Noted Gross Range of Motion Upper Extremity ROM Assessment Within Functional Limits Lower Extremity ROM Assessment Right Impaired Strength Upper Extremity Strength Assessment Within Functional Limits Lower Extremity Strength Assessment Right Impaired Comments Strength Comments LLE grossly 5/5 Sensation Assessment Sensation Gross Sensation WNL Comments Sensation Comments Pt denies numbness in BLE M6 PT-IP Treatment Start: 09/26/20 14:48 Freq: NEEDED Status: Active Protocol: Document 09/26/20 16:28 AW (Rec: 09/26/20 16:49 AW [id number]) Physical Therapy Treatment Exercises Exercises Ankle Pumps,Quad Sets,Passive Knee Extension Hang Education Education Provided Precautions,Weight Bearing Status,Post-Op Packet,Safety Brace Education Donning,[place],Patient Other Treatments Other Treatment Performed Provided education on role of PT, plan of care, weightbearing status, safe use of FWW, and donning/doffing knee immobilizer M7 PT-IP Assessment and Plan Start: 09/26/20 14:48 Freq: NEEDED Status: Active Protocol: Document 09/26/20 16:28 AW (Rec: 09/26/20 16:49 AW [id number]) PT Summary Assessment and Plan Potential Rehabilitation Potential Excellent Status of Condition at Evaluation Evolving Summary Impairments Pain,ROM,Strength,Balance,Bed Mobility,Transfers,Gait, Activity Tolerance Assessment Summary Monie is a 74 yo woman with recent history of L TKA who was seen for PT evaluation on POD0 following R TKA. Surgery was complicated by avulsion of the distal patellar tendon. Ortho has ordered knee immobilizer at all times for first two weeks. Pt will then be fit with a hinged brace at follow up. Pt is independent in all regards at baseline. She required SBA to CGA for all mobility with knee immobilizer and FWW during evaluation. PT anticipates Monie will be safe to discharge home with assist and outpatient PT once medically cleared. She will be seen for gait and stair training in the morning. Goals Bed Mobility Goal Independent Transfer Goal Independent,Front Wheeled Walker Gait Goal Independent,Front Wheel Walker Gait Distance 250 Other Goals - up/down 2 steps with R rail ascending SBA Days to Meet Goals 2 Frequency of Treatment Frequency Of Treatment Twice a Day Treatment Plan Physical Therapy Treatment Plan Bed Mobility Training,Transfer Training,Gait Training, Therapeutic Exercise,Balance Retraining,Post Op Education, Discharge Planning,Hot or Cold Pack,Neuromuscular Re-ed Other Recommendations and Next Treatment stairs, review donning/doffing Focus knee immobilizer Recommendations To Nursing Amount of Assist Needed Standby Assistance Discharge Recommendations PT Discharge Recommendations Home with Assistance, Outpatient PT Transportation Needs at Discharge Private Vehicle
[2020-09-26] MEDS: ASPIRIN EC 81 MG TABLET PO (20:54)
[2020-09-26] MEDS: DOCUSATE 100 MG CAPSULE PO (20:54)
[2020-09-27] VITALS: BP 152/78; PULSE 58; RESP 16; TEMP 36.5; O2SAT 98
[2020-09-27] MEDS: IBUPROFEN 400 MG TABLET PO ×3 (00:21→09:15)
[2020-09-27 04:15] VITALS: BP 149/75; PULSE 60; RESP 18; TEMP 36.4; O2SAT 98
[2020-09-27] MEDS: LEVOTHYROXINE 25 MCG TABLET PO (04:47)
[2020-09-27 06:35] LABS: Hematocrit 30.2 % (36-46); Hemoglobin 10.2 g/dL (12.0-16.0)
[2020-09-27 07:30] VITALS: BP 143/74; PULSE 57; RESP 16; TEMP 36.6; O2SAT 98
--- NOTE | 2020-09-27 07:49 | PM.DS.1 ---
History of Present Illness History of Present Illness Date Patient Seen: 09/27/20 Time Patient Seen: 07:50 Chief complaint: OPB Narrative: The history and physical is contained in the chart. Please refer to that note for this information. Discharge Providers Provider Date of admission: September 26, 2020 Discharge Date: 09/27/20 Consults: 09/26/20 12:40 Consult to Discharge Planning Routine Comment: Consult to Physical Therapy Evaluate & Treat Comment: WBAT in immobilizer. Physician Instructions: postop TKA protocol, knee immobilzer, can do SLR, Discharge provider: Ishaan Aldridge MD Summary Hospital Course Discharge Diagnosis: 1. Right knee osteoarthritis 2. Iatrogenic avulsion of the patellar tendon from the tibia during surgery 3. Post hemorrhagic anemia Hospital Course: The patient was admitted to the hospital and taken directly to the operating room on September 26, 2020. She underwent a right total knee replacement. During the approach without excessive stress, the patellar tendon avulsed from the tibia. This was repaired during surgery. This necessitated the use of a knee immobilizer after surgery to protect the patellar tendon repair. On postoperative day 1 the patient appeared to be stable, with good pain control, and appeared to be ready to consider discharge. Status at Discharge Cognitive/behavioral status at discharge: oriented Functional status at discharge: uses cane/walker Overall status at discharge: patient is progressing back to baseline Time Spent with Patient Time spent: Less than 30 minutes Exam Vital Signs (past 8 hours): - 09/27/20 00:00 09/27/20 04:15 Temperature 97.7 F 97.5 F L Pulse Rate 58 L 60 Respiratory Rate 16 18 Blood Pressure 152/78 H 149/75 H Pulse Oximetry 98 98 Oxygen Delivery Method Room Air Oxygen Flow Rate 0 Narrative Exam Narrative: Knee immobilizer is in place. Calf is soft. Light touch and motion are intact in the right lower extremity. Objective Labs Result Diagrams: 09/27/20 06:10 Labs: Laboratory Results - last 24 hr 09/27/20 06:10 Hgb 10.2 L Hct 30.2 L Discharge Assessment & Plan Assessment and Plan Assessment: Stable postoperative day 1 status post right total knee replacement complicated by avulsion of the patellar tendon off its tibial insertion. This was repaired. She has a mild post hemorrhagic anemia. She is comfortable and has been able to ambulate with a knee immobilizer in place. Plan of Treatment: Discharge today with follow-up in 2 weeks. Discharge prescriptions for oxycodone are on the chart and she has been instructed to use Tylenol for pain control, ibuprofen for pain control, and 81 mg aspirin p.o. b.i.d. for DVT prophylaxis. She has been instructed to use the knee immobilizer for 2 weeks and then will be placed in a hinged knee brace with progressively increasing flexion. Discharge Plan Discharge Plan Patient Disposition: Home Discharge orders & Medications Discharge Orders: Discharge (Order); Ordered 09/27/20 Ordered By: Ishaan Aldridge Prescriptions: New acetaminophen 325 mg Tablet 650 mg PO TID 30 Days Qty: 180 RF: 0 aspirin 81 mg Tablet,Delayed Release (Dr/Ec) 81 mg PO BID 42 Days Qty: 84 RF: 0 ibuprofen 400 mg Tablet 400 mg PO Q4HR 30 Days RF: 0 oxycodone 5 mg Tablet 5 mg PO Q4H PRN (Reason: Pain, Moderate (4-6)) Qty: 40 RF: 0 Continued levothyroxine 25 mcg Capsule 25 mcg PO DAILY RF: 0 Discontinued oxycodone 5 mg Tablet 5 mg PO Q4H PRN (Reason: Pain, Moderate (4-6)) Qty: 40 RF: 0 Follow up/Referrals: Ishaan Aldridge MD [Physician] - 2 Weeks Diet/Activity/Treatments Diet: Diet as Tolerated and Regular Activity: You may weight bear as tolerated on your right leg. Remain in the knee immobilizer except for hygiene. You may do straight leg raises against gravity with the immobilizer in place. Cold/Heat Therapy: You may apply ice to the right knee through the immobilizer continuously as needed for pain relief. Skin/Wound/Dressing Care Report to your healthcare provider any signs of infection, such as:: chills, fever, night sweats, increased pain, unusual drainage and unusual redness Dressing: You may remove her Christopher wrap 3 days after surgery and then shower normally. You also must remove the knee immobilizer to bathe. Either sit or keep the knee straight when showering. The deeper dressing remains on in the shower, if the deeper dressing becomes saturated with either water or blood, please call the office to have it evaluated. Visit Report/Discharge Packet Instructions: DI for Knee Replacement Stand Alone Forms: Surgery Discharge Discharge Data Attending Provider: Oly,Ishaan M Quality VTE Deep Vein Thrombosis/Pulmonary Embolism Present on Admission: No
[2020-09-27] MEDS: ACETAMINOPHEN 325 MG TABLET 650 MG PO (09:14)
[2020-09-27] MEDS: DOCUSATE 100 MG CAPSULE PO (09:14)
[2020-09-27] MEDS: ASPIRIN EC 81 MG TABLET PO (09:14)
--- NOTE | 2020-09-27 10:16 | PC.NURSE ---
Assess- Patient is A&Ox3, working with physical therapy now. She was given tylenol and ibuprofen for pain and this seems to be helping her. She did have her partner go to the pharmacy and fill her prescription for oxycodone. Dressing to R.knee with aquacel and [place] wrap. She also has an immobilizer on the top of her knee. She will most likely discharge home today.
--- NOTE | 2020-09-27 10:18 | PT.IPTN ---
Current Diagnoses Unilateral primary osteoarthritis, right knee (09/26/20) Surgery Performed Operation Date: 09/26/20 10:15 Actual Procedures p Total Knee Arthroplasty; Repair of avulsion of patellar tendon(Right) - Ishaan Aldridge MD Physical Therapy Treatment Note M2 PT-IP Current Condition Start: 09/26/20 14:48 Freq: NEEDED Status: Active Protocol: Document 09/26/20 16:28 AW (Rec: 09/26/20 16:49 AW [id number]) Physical Therapy Current Condition Current Condition Evaluation Date 09/26/20 Treatment Diagnosis R TKA, difficulty in walking Onset Date 09/26/20 Precautions Brace Per op note: The patient will be maintained on a standard total knee replacement protocol with weight bearing as tolerated, but will be required to wear a knee immobilizer for 2 weeks. She will then be given a hinged knee brace and allowed 0-30 degrees range of motion for 2 weeks followed by 0-60 for 2 weeks followed by 0-90 for 2 weeks and then discontinuation of the brace. Weight Bearing Status Weight Bearing Status Weight Bear as Tolerated M3 PT-IP Subjective Start: 09/26/20 14:48 Freq: NEEDED Status: Active Protocol: Document 09/27/20 10:01 (Rec: 09/27/20 11:59 [email or web address]) Subjective Physical Therapy Visit Type Type Treatment Note Visit Start Time 10:01 Visit Stop Time 10:18 Total Visit Minutes 17 Notes MINDY Emerson led tx under direct supervision of Chloe NELSON. Tash pts significant other present for tx. Pt is familiar w/ TKA protocol since she had her L knee done in January. Number of ICE SCRAPER Visits 1 Physical Therapy Visit Comments Patient Comments Pt agreeable to work with therapy. Therapy Pain Assessment Pain When Pain Assessed At Rest Pain Present Pain Present Pain Reported Location LT thigh Scale Used not quantified Pain Management Techniques Modification of Treatment,Re- positioning M4 PT-IP Mobility and Gait Start: 09/26/20 14:48 Freq: NEEDED Status: Active Protocol: Document 09/27/20 10:01 (Rec: 09/27/20 11:59 [email or web address]) PT-Bed Mobility Assessment Supine to Sit Supine to Sit Standby Assistance Scooting Scooting to Edge of Bed Standby Assistance PT-Transfer Assessment Sit to and From Stand Sit to and from Stand Standby Assistance,Use of Upper Extremities Equipment Transfer Assistive Device Gait Belt,Front Wheeled Walker Orthotic/Prosthetic Devices or Brace: Yes Transfers Transfer Destination Bed Transfer Technique pt ambulated with FWW Transfer Ability Level of Assist Standby Assistance Comments Mobility Comments Pt was in bed upon arrival. Reviewed ankle pumps 20x. Supine to sit SBA. Scooting to EOB SBA. Pt able to doff L sock and shoe. Needed assistance doning R shoe. Sit to stand SBA w/ FWW. Pt amb ~ 250' CGA at first just for safety, and SBA for rest of amb. Pt demonstrated step through gait w/ FWW. Cued pt not to uppers edge burnisher walker w/ each step, but instead continously roll the walker. Pt amb stairs w/ step to gait up/down 1x w/ SBA and R railing. After stair training pt returned to room. Stand to sit SBA w/ FWW. Went over how to use knee immobilizer w/ Tash present to help with it as needed. Pt left w/ call light and all needs within reach. Informed nurse of pts mobility. Gait Assessment Gait Gait Assistance Required: Standby Assistance Distance (Feet) 250 Assistive Devices Assistive Device Gait Belt,Front Wheeled Walker Orthotic/Prosthetic Devices or Brace: Yes Gait Deviations General Gait Pattern Antalgic,Decreased Stride Length,Decreased Feet Clearance Comments Gait Comments See mobility comments. Stair Climbing Assessment Evaluation Level of Assist On Stairs Standby Assistance,1 Person Assistance Devices Stair Climbing Assistive Devices Left Railing,Right Railing Technique/Endurance Stair Climbing Direction Ascend and Descend Number of Steps Climbed 3 Stair Climbing Set # Repetitions (reps) 1 Comments Stair Climbing Comments See mobility comments PT-Balance Assessment Sitting Balance and Reactions Static Sitting Balance Ability Normal Dynamic Sitting Balance Ability Normal Standing Balance and Reactions Static Standing Balance Ability Good Dynamic Standing Balance Ability Good Device Used FWW M5 PT-IP Objective Assessments Start: 09/26/20 14:48 Freq: NEEDED Status: Active Protocol: Document 09/26/20 16:28 AW (Rec: 09/26/20 16:49 AW [id number]) Orientation Orientation/Cognition Level of Alertness Alert Orientation Name,Day of Week,Place, Situation Language Function Ability No Deficits Noted Safety Awareness Understands Safety Issues Memory Description No Deficits Noted Gross Range of Motion Upper Extremity ROM Assessment Within Functional Limits Lower Extremity ROM Assessment Right Impaired Strength Upper Extremity Strength Assessment Within Functional Limits Lower Extremity Strength Assessment Right Impaired Comments Strength Comments LLE grossly 5/5 Sensation Assessment Sensation Gross Sensation WNL Comments Sensation Comments Pt denies numbness in BLE M6 PT-IP Treatment Start: 09/26/20 14:48 Freq: NEEDED Status: Active Protocol: Document 09/27/20 10:01 (Rec: 09/27/20 11:59 [email or web address]) Physical Therapy Treatment Exercises Exercises Ankle Pumps Education Education Provided Safety Brace Education Donning,[place],Patient, Caregiver Other Treatments Other Treatment Performed Donning/doffing knee immobilizer. Reviewed ther ex. M7 PT-IP Assessment and Plan Start: 09/26/20 14:48 Freq: NEEDED Status: Active Protocol: Document 09/27/20 10:01 (Rec: 09/27/20 11:59 [email or web address]) PT Summary Assessment and Plan Potential Rehabilitation Potential Excellent Status of Condition at Evaluation Evolving Summary Impairments Pain,ROM,Strength,Balance,Bed Mobility,Transfers,Gait, Activity Tolerance Assessment Summary Pt SBA for bed mobility, transfers and gait. Pt amb 250 ' SBA w/ FWW. Pt amb 3 steps on therapy stairs SBA w/ railing. Went over donning/ doffing knee immobilizer w/ Tash, pts significant other to help assist when pt needs. Goals Bed Mobility Goal Independent Transfer Goal Independent,Front Wheeled Walker Gait Goal Independent,Front Wheel Walker Gait Distance 250 Days to Meet Goals 2 Frequency of Treatment Frequency Of Treatment Twice a Day Treatment Plan Physical Therapy Treatment Plan Bed Mobility Training,Transfer Training,Gait Training, Therapeutic Exercise,Balance Retraining,Post Op Education, Discharge Planning,Hot or Cold Pack,Neuromuscular Re-ed Recommendations To Nursing Amount of Assist Needed Standby Assistance Discharge Recommendations PT Discharge Recommendations Home with Assistance, Outpatient PT Transportation Needs at Discharge Private Vehicle
[2020-09-27] MEDS: OXYCODONE IR 5 MG TABLET PO (11:00)
--- NOTE | 2020-09-27 13:09 | CM.DANOTE ---
Discharge Planning/Care Management DCP: assessment: case received, EMR reviewed. Discussed in Team Rounds. PT stated that pt had done well and been cleared for home setting this morning. A check in now shows that she did d/c as planned with no concerns repressed by the care team members. Admission: 09/26 for planned knee surgery. DC today 09/27. Payer: [facility]. Admission status: SDC: per RAMAN Alvarado CM Discharge Assessment Start: 09/27/20 13:08 Freq: Status: Active Protocol: Document 09/27/20 13:09 ITV (Rec: 09/27/20 13:09 ITV [id number]) Discharge Planning Assessment Advance Directives? Yes Advance Directives on File Yes History Provided By Patient,Significant Other, Medical Record Prior Living Arrangements House Household Members significant other Patient/Family Preference OP PT Therapy Discharge Plan Home Referrals Initiated None needed Pre-Anesthesia Assessment Start: 09/20/20 09:23 Freq: Status: Discharge Protocol: Document 09/20/20 09:23 CAB (Rec: 09/20/20 09:46 CAB [id number]) Pre-Anesthesia Assessment PAC Comment Pt s/p LT TKA 01/18/20, declines PAC phone assessment, denies any medical/medication changes . Pt states no questions/ concerns, chart review only. High anxiety prior to medical/ surgical procedures Patient Information Reviewed Via Chart Review Comment COVID screen @ 09/23/20 Primary Care Provider Stevenson Molina Seen Specialist in Last 12 Months Yes Specialist Seen Orthopedist Primary Language Kenyan Preferred Language Kenyan Housing Specialist Required No Height 154.94 cm Weight 53.524 kg Body Mass Index (BMI) 22.3 Hearing Ability Normal Visual Assist Magnifying Glass Dentition Type Teeth, Natural Present Barriers to Learning None Other Aids No Hx Anesthesia Reactions Yes: Vomited while watching knee arthroscopy Additional comment High anxiety prior to medical/ surgical procedures Hx Family Anesthesia Reaction No Hx Malignant Hyperthermia No Hx Blood Transfusions No Hx Blood Transfusion Reaction No Anesthesia Review Requested No alcohol intake former Alcohol Intake Frequency Other: Quit 38 years ago Smoking Status Former smoker how long ago did patient quit smoking Quit 38 years ago Substance Use Type marijuana Comment Previously advised not to smoke marijuana 24 hours prior to surgery Pain Present Pain Reported Musculoskeletal Symptoms Abnormal Gait,Difficulty Walking,Joint Pain History of Falling (Recent or History of No ) Patient is completely paralyzed or No completely immobile Prosthesis or Orthotic Device Cane,Front Wheel Walker Mental Status Oriented to own ability Is patient on oxygen? No Does patient have ABERNATHY/SOB No Hx Sleep Apnea No CPAP/BIPAP use not prescribed Currently Taking a Beta Geovanni No Can You Climb a Flight of Stairs Without Yes SOB Hx Chest Pain No Hx SOB No Hx Syncope or Dizziness No Anti-Coagulant Therapy No Has a Tank Processor No Cardiac Testing No Hx Pacemaker/ICD No Pacemaker Rep Required? No Cardiac Clearance Received Not Applicable Comment Active, goes to gym 4x/week Diet Type At Home Regular dysphagia No Bladder Pattern Urgency Urinary Catheter Present No Hx Urinary Self Catheterization No Diabetes No Patient No Lactating No Hx Drug Resistant Organism No Presence of External or Internal Medical Yes: Bilat eye lens, left Devices knee prosthesis Have you had any close contact with Unknown someone diagnosed with COVID-19? Marital Status Single-w/domestic partner Lives With significant other Prior Living Arrangements House Number of Floors (Floors) 3 or More Floors Support System Friend(s),Significant Other Does the Patient Have Assistance After Yes Surgery Patient Discharge Plan Description Return Home Feels Safe in Current Environment Yes Been Physically Hurt or Threatened By a No Person in Current Environment Do you have thoughts of harming yourself None or others? Are you currently considering suicide? No Do you have a plan to hurt yourself or No Plan others? Do You Have Any Spiritual Beliefs That No May Affect Your HC Choices? Do You Have Any Cultural Practices That No May Affect Your HC Choices? Who Can We Speak to About Patient's Care Family, friends Identifying Code for Release of Patient Declines to issue Information Health Care Proxy/Next of Kin Tash (Domestic partner) Health Care Proxy Emergency Contact Name Tash (Domestic partner) Emergency Contact Advance Directives? Yes Advance Directives on File No Power of Mohs Surgeon/General Dermatologist Yes: Will bring dos Power of Mohs Surgeon/General Dermatologist Name Tash (Domestic partner) Power of Mohs Surgeon/General Dermatologist
== END 2020-09-27 11:45 | disposition home or self-care (01) ==
LOC: OR 09:08 → AC 09:08
PROVIDERS: Referring Provider Orthopaedic Surgery; Visit Provider Orthopaedic Surgery
PROC: 0SRC0JZ Replacement of Right Knee Joint with Synthetic Substitute, Open Approach (ICD-10-PCS; CPT 27447; principal; 2020-09-26 10:15)
DX: M17.11 Unilateral primary osteoarthritis, right knee (principal); S76.191A Other specified injury of right quadriceps muscle, fascia and tendon, initial encounter; E03.9 Hypothyroidism, unspecified
CPT/HCPCS: 27447; 27380; 36415; 73560; 85014; 85018; 97116; 97161; C1776; C9290; J0690; J1100; J2250; J2270; J2274; J2405; J2704; J3010